=== PATIENT | female | born 1995 | race American Indian/Alaskan Native ===

== ENCOUNTER 2016-04-24 13:52 | Emergency (ER) | payer BC ==
--- NOTE | 2016-04-24 14:24 | Emergency Department Report ---
Chief Complaint: Nausea/Vomiting/Diarrhea Stated Complaint: PAIN UNDER RIB CAGE Time Seen by Provider: 04/24/16 14:19 - HPI History of Present Illness: 20-year-old -[place] female comes in for epigastric pressure and cramping since . She reports been having nausea and vomiting as well. She reported the onset was about after having hamburger and that's when she started having all the signs and symptoms. Patient reports that she last time she's had alcoholic breath which was a month ago. - Exam Vital Signs: Vital Signs 04/24/16 14:13 Temperature 98.6 F Pulse Rate 103 H Respiratory 18 Rate Blood Pressure 115/82 O2 Sat by Pulse 100 Oximetry Physical Exam: He is alert and oriented. She's patting her epigastric area. Cardiovascular tachycardic respiratory clear to auscultation abdomen soft bowel sounds present no tenderness. MSE screening note: Focused history and physical exam performed. Due to findings the following was ordered: CBC BMP lipase ordered urinalysis urine test. ED Disposition for MSE Condition: Stable
[2016-04-24 15:20] LABS: Hematocrit 41.4 % (30.3-42.9); Hemoglobin 14.2 gm/dl (10.1-14.3); Mean Corpuscular HGB Conc 34 % (30-34); Mean Corpuscular Hemoglobin 29 pg (28-32); Mean Corpuscular Volume 84 fl (79-97); Platelet Count 264 K/mm3 (140-440); Red Blood Count 4.95 M/mm3 (3.65-5.03); Red Cell Distribution Width 16.3 % (13.2-15.2); White Blood Count 8.7 K/mm3 (4.5-11.0)
[2016-04-24 15:32] LABS: Alanine Aminotransferase 10 units/L (7-56); Albumin 4.3 g/dL (3.9-5); Albumin/Globulin Ratio 1.2 %; Alkaline Phosphatase 67 units/L (35-129); Anion Gap 16 mmol/L; Bilirubin,Total 0.4 mg/dL (0.1-1.2); Blood Urea Nitrogen 14 mg/dL (7-17); Carbon Dioxide 26 mmol/L (22-30); Chloride 98.6 mmol/L (98-107); Glucose 92 mg/dL (65-100); Lipase 28 units/L (13-60); Potassium 3.4 mmol/L (3.6-5.0); Sodium 137 mmol/L (137-145); Total Protein 7.8 g/dL (6.3-8.2)
[2016-04-24] MEDS ORDERED: MORPHINE IV ONE (20:56)
[2016-04-24] MEDS ORDERED: ZOFRAN IV ONE (20:56)
[2016-04-24] MEDS ORDERED: PEPCID IV ONE (20:56)
[2016-04-24] MEDS ORDERED: K-DUR PO ONE (20:56)
[2016-04-24] MEDS ORDERED: D5NS 1,000 ML IV SCH (21:00)
[2016-04-24 21:39] LABS: Bacteria,Urine 1+ /HPF (Negative); Bilirubin,Urine NEG (Negative); Blood,Urine NEG (Negative); Ketones,Urine 80 mg/dL (Negative); Leukocyte Esterase,Urine SM (Negative); Mucus,Urine 3+ /HPF; Nitrite,Urine NEG (Negative)
--- NOTE | 2016-04-24 22:18 | Emergency Department Report ---
ED Abdominal Pain HPI - General Chief Complaint: Nausea/Vomiting/Diarrhea Stated Complaint: PAIN UNDER RIB CAGE Time Seen by Provider: 04/24/16 14:19 Source: patient Mode of arrival: Ambulatory Limitations: No Limitations - History of Present Illness Initial Comments: 20-year-old female with no significant past medical history presents hospital complaining of epigastric pain, nausea, and vomiting that started after eating a hamburger 3 days ago. Epigastric pain described as squeezing and twisting. It is constant but fluctuates in intensity. Currently rated as 7/10 in intensity. Palpation. No alleviating factors. Patient has had 3 episodes of vomiting today and about 5 episodes over night. Denies melena, hematochezia, hematemesis, fever, or dysuria. Severity scale (0 -10): 7 - Related Data Previous Rx's Medication Instructions Recorded Last Taken Type Famotidine [Pepcid] 40 mg PO QHS #20 tablet 04/24/16 Unknown Rx Ondansetron [Zofran Odt] 4 mg PO Q8HR PRN #20 tab.rapdis 04/24/16 Unknown Rx traMADol [Ultram 50 MG tab] 50 mg PO Q6HR PRN #20 tablet 04/24/16 Unknown Rx Allergies Allergy/AdvReac Type Severity Reaction Status Date / Time No Known Allergies Allergy Unverified 04/24/16 14:17 ED Review of Systems ROS: Stated complaint: PAIN UNDER RIB CAGE Other details as noted in HPI Comment: All other systems reviewed and negative Other: Constitutional: No fevers chills or weight loss Eyes: No eye pain visual changes or discharge ENT: No ear pain or throat pain Neck: Denies pain Respiratory: Denies cough wheezing shortness of breath Cardiovascular: Denies chest pain, palpitations, syncope GI: As per HPI : Denies dysuria, urinary frequency, or urgency Musculoskeletal: Denies back pain, joint swelling Skin: Denies rash, lesions, erythema Neurologic: Denies headache, numbness, weakness Psychiatric: Denies suicidal ideation, hallucinations ED Past Medical Hx - Past Medical History Previous Medical History?: No - Surgical History Past Surgical History?: No - Social History Smoking Status: Current Every Day Smoker Substance Use Type: None - Medications Home Medications: Home Medications Medication Instructions Recorded Confirmed Last Taken Type Famotidine [Pepcid] 40 mg PO QHS #20 tablet 04/24/16 Unknown Rx Ondansetron [Zofran Odt] 4 mg PO Q8HR PRN #20 tab.rapdis 04/24/16 Unknown Rx traMADol [Ultram 50 MG tab] 50 mg PO Q6HR PRN #20 tablet 04/24/16 Unknown Rx ED Physical Exam - General Limitations: No Limitations - Other Other exam information: General: No limitations, patient is alert in no acute distress Head exam: Atraumatic, normocephalic Eyes exam: Normal appearance, pupils equal reactive to light, extraocular movements intact ENT: Mucous membrane Neck exam: Normal inspection, full range of motion, no meningismus nontender Respiratory exam: Clear to auscultation bilateral, no wheezes, rales, crackles Cardiovascular: Normal rate and rhythm, normal heart sounds Abdomen: Soft, nondistended, the gastric tendon, with normal bowel sounds, no rebound, or guarding, and negative Anthony sign Extremity: Full range of motion normal inspection no deformity Back: Normal Inspection, full range of motion, no tenderness Neurologic: Alert, oriented x3, cranial nerves intact, no motor or sensory deficit Psychiatric: normal affect, normal mood Skin: Warm, dry, intact ED Course Vital Signs 04/24/16 04/24/16 04/24/16 14:13 20:17 22:00 Temperature 98.6 F Pulse Rate 103 H 91 H 90 Respiratory 18 18 18 Rate Blood Pressure 115/82 Blood Pressure 118/80 116/80 [Left] O2 Sat by Pulse 100 99 99 Oximetry 04/24/16 22:57 Temperature Pulse Rate 88 Respiratory 18 Rate Blood Pressure Blood Pressure 103/69 [Left] O2 Sat by Pulse 99 Oximetry - Reevaluation(s) Reevaluation #1: 04/24/16 22:17 Treated with D5 NS, Zofran, morphine, and Pepcid 04/24/16 22:17 ED Medical Decision Making - Lab Data Result diagrams: 04/24/16 14:33 04/24/16 14:30 Lab Results 04/24/16 04/24/16 04/24/16 Range/Units 14:30 14:33 21:15 WBC 8.7 (4.5-11.0) K/mm3 RBC 4.95 (3.65-5.03) M/mm3 Hgb 14.2 (10.1-14.3) gm/dl Hct 41.4 (30.3-42.9) % MCV 84 (79-97) fl MCH 29 (28-32) pg MCHC 34 (30-34) % RDW 16.3 H (13.2-15.2) % Plt Count 264 (140-440) K/mm3 Sodium 137 (137-145) mmol/L Potassium 3.4 L (3.6-5.0) mmol/L Chloride 98.6 (98-107) mmol/L Carbon Dioxide 26 (22-30) mmol/L Anion Gap 16 mmol/L BUN 14 (7-17) mg/dL Creatinine 0.5 L (0.7-1.2) mg/dL Estimated GFR > 60 ml/min BUN/Creatinine Ratio 28.00 % Glucose 92 (65-100) mg/dL Calcium 9.0 (8.4-10.2) mg/dL Total Bilirubin 0.4 (0.1-1.2) mg/dL AST 19 (5-40) units/L ALT 10 (7-56) units/L Alkaline Phosphatase 67 (35-129) units/L Total Protein 7.8 (6.3-8.2) g/dL Albumin 4.3 (3.9-5) g/dL Albumin/Globulin Ratio 1.2 % Lipase 28 (13-60) units/L Urine Color Yellow (Yellow) Urine Turbidity Cloudy (Clear) Urine pH 7.0 (5.0-7.0) Ur Specific [place] 1.025 (1.003-1.030) Urine Protein 30 mg/dl (Negative) mg/dL Urine Glucose (UA) Neg (Negative) mg/dL Urine Ketones 80 (Negative) mg/dL Urine Blood Neg (Negative) Urine Nitrite Neg (Negative) Urine Bilirubin Neg (Negative) Urine Urobilinogen 4.0 (<2.0) mg/dL Ur Leukocyte Esterase Sm (Negative) Urine WBC (Auto) 6.0 (0.0-6.0) /HPF Urine RBC (Auto) 7.0 (0.0-6.0) /HPF U Epithel Cells (Auto) 52.0 H (0-13.0) /HPF Urine Bacteria (Auto) 1+ (Negative) /HPF Urine Mucus 3+ /HPF Urine HCG, Qual Negative (Negative) - Medical Decision Making Patient feeling better with ED treatment and tolerating by mouth. Will be discharged home on meds for symptomatic treatment. - Differential Diagnosis food poisoning, gastritis, pancreatitis, cholecystitis, Critical Care Time: No Critical care attestation.: If time is entered above; I have spent that time in minutes in the direct care of this critically ill patient, excluding procedure time. ED Disposition Clinical Impression: Food poisoning, Epigastric pain, Nausea and vomiting Disposition: DISCHARGED TO HOME OR SELFCARE Is pt being admited?: No Does the pt Need Aspirin: No Condition: Stable Instructions: Food Poisoning (ED) Additional Instructions: Take the medication as needed for pain and nausea. Follow-up with your doctor to doctor provided. Return if symptoms worsen Prescriptions: Famotidine [Pepcid] 40 mg PO QHS #20 tablet Ondansetron [Zofran Odt] 4 mg PO Q8HR PRN #20 tab.rapdis PRN Reason: Nausea And Vomiting traMADol [Ultram 50 MG tab] 50 mg PO Q6HR PRN #20 tablet PRN Reason: Pain Referrals: PRIMARY CARE, [Primary Care Provider] - 3-5 Days CARMEN MCBRIDE MD [Staff Physician] - 3-5 Days Time of Disposition: 23:42
[2016-04-24 23:00] VITALS: BP 103/69
== END 2016-04-25 00:12 | disposition home or self-care (01) ==
LOC: ED 13:52
DX: T62.8X1A Toxic effect of other specified noxious substances eaten as food, accidental (unintentional), initial encounter (principal); R10.13 Epigastric pain; R11.2 Nausea with vomiting, unspecified; F17.200 Nicotine dependence, unspecified, uncomplicated; Y92.89 Other specified places as the place of occurrence of the external cause
CPT/HCPCS: 36415; 80053; 81001; 81025; 83690; 85027; 96361; 96374; 96375; 99283; J2270; J2405; J7042

== ENCOUNTER 2017-04-12 14:07 | Emergency (ER) | payer BC ==
[2017-04-12 14:19] VITALS: BP 126/80
--- NOTE | 2017-04-12 14:59 | Emergency Department Report ---
Blank Doc - Documentation Documentation: Patient is a 21 left neck female as having lower abdominal discomfort. Patient states his vision off and off for approximately 2-3 weeks. Patient says she has some mild urinary frequency with no dysuria. Patient denies any vaginal discharge vaginal bleeding this abnormal. Patient states she had 2 episodes of vomiting this morning.
[2017-04-12 15:55] LABS: Bilirubin,Urine NEG (Negative); Blood,Urine NEG (Negative); Color,Urine Yellow (Yellow); Mucus,Urine FEW /HPF; Protein,Urine <15 mg/dL mg/dL (Negative); Urobilinogen,Urine < 2.0 mg/dL (<2.0)
[2017-04-12 15:57] LABS: HCG Qualitative,Urine Negative (Negative)
--- NOTE | 2017-04-12 16:57 | Emergency Department Report ---
ED Abdominal Pain HPI - General Chief Complaint: Abdominal Pain Stated Complaint: ABDOMINAL PAIN/CRAMPS Time Seen by Provider: 04/12/17 14:37 Source: patient Mode of arrival: Ambulatory Limitations: No Limitations - History of Present Illness Initial Comments: Patient is a 21-year-old female who presents with upper epigastric abdominal pain for the past 2-3 weeks. Patient states she does have nausea and vomiting intermittently. Patient states the pain is worse at nighttime. Patient states she is able to eat sometimes and somewhat trace of fluids but sometimes not always. Patient states she does have a history of abnormal menstrual cycle. 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 Patient denies diarrhea, constipation, fever, chest pain - Related Data Previous Rx's Medication Instructions Recorded Last Taken Type traMADol [Ultram 50 MG tab] 50 mg PO Q6HR PRN #20 tablet 04/24/16 Unknown Rx Famotidine [Pepcid] 40 mg PO QHS #20 tablet 04/12/17 Unknown Rx Ondansetron [Zofran ODT TAB] 4 mg PO Q8HR PRN #20 tab.rapdis 04/12/17 Unknown Rx Allergies Allergy/AdvReac Type Severity Reaction Status Date / Time No Known Allergies Allergy Unverified 04/24/16 14:17 ED Review of Systems ROS: Stated complaint: ABDOMINAL PAIN/CRAMPS Other details as noted in HPI Constitutional: denies: chills, fever Eyes: denies: eye pain, eye discharge, vision change ENT: denies: ear pain, throat pain Respiratory: denies: cough, shortness of breath, wheezing Cardiovascular: denies: chest pain, palpitations Endocrine: no symptoms reported Gastrointestinal: denies: abdominal pain, nausea, diarrhea Genitourinary: denies: urgency, dysuria, discharge Musculoskeletal: denies: back pain, joint swelling, arthralgia Skin: denies: rash, lesions Neurological: denies: headache, weakness, paresthesias Psychiatric: denies: anxiety, depression Hematological/Lymphatic: denies: easy bleeding, easy bruising ED Past Medical Hx - Past Medical History Previous Medical History?: No - Social History Smoking Status: Current Every Day Smoker Substance Use Type: None - Medications Home Medications: Home Medications Medication Instructions Recorded Confirmed Last Taken Type traMADol [Ultram 50 MG tab] 50 mg PO Q6HR PRN #20 tablet 04/24/16 Unknown Rx Famotidine [Pepcid] 40 mg PO QHS #20 tablet 04/12/17 Unknown Rx Ondansetron [Zofran ODT TAB] 4 mg PO Q8HR PRN #20 tab.rapdis 04/12/17 Unknown Rx ED Physical Exam - General Limitations: No Limitations General appearance: alert, in no apparent distress - Head Head exam: Present: atraumatic, normocephalic - Eye Eye exam: Present: normal appearance - ENT ENT exam: Present: mucous membranes moist - Neck Neck exam: Present: normal inspection - Respiratory Respiratory exam: Present: normal lung sounds bilaterally. Absent: respiratory distress - Cardiovascular Cardiovascular Exam: Present: regular rate, normal rhythm. Absent: systolic murmur, diastolic murmur, rubs, gallop - GI/Abdominal GI/Abdominal exam: Present: soft, normal bowel sounds - Extremities Exam Extremities exam: Present: normal inspection - Back Exam Back exam: Present: normal inspection - Neurological Exam Neurological exam: Present: alert, oriented X3 - Psychiatric Psychiatric exam: Present: normal affect, normal mood - Skin Skin exam: Present: warm, dry, intact, normal color. Absent: rash ED Course Vital Signs 04/12/17 14:15 Temperature 98.4 F Pulse Rate 97 H Respiratory 18 Rate Blood Pressure 126/80 O2 Sat by Pulse 100 Oximetry Critical care attestation.: If time is entered above; I have spent that time in minutes in the direct care of this critically ill patient, excluding procedure time. ED Disposition Clinical Impression: Gastritis Qualifiers: Gastritis type: unspecified gastritis Chronicity: chronic Gastritis bleeding: without bleeding Qualified Code(s): K29.50 - Unspecified chronic gastritis without bleeding Food poisoning Qualifiers: Encounter type: initial encounter Injury intent: accidental or unintentional Qualified Code(s): T62.91XA - Toxic effect of unspecified noxious substance eaten as food, accidental (unintentional), initial encounter Disposition: DC-01 TO HOME OR SELFCARE Is pt being admited?: No Does the pt Need Aspirin: No Condition: Stable Instructions: Gastritis (ED), Gastroenteritis (ED), Food Poisoning (ED), Abdominal Pain (ED) Additional Instructions: Make sure to follow up with the primary care physician as discussed. Take all your medications as you've been prescribed. If you have any worsening symptoms or develop new symptoms please return to ED immediately. Prescriptions: Famotidine [Pepcid] 40 mg PO QHS #20 tablet Ondansetron [Zofran ODT TAB] 4 mg PO Q8HR PRN #20 tab.rapdis PRN Reason: Nausea And Vomiting Referrals: PRIMARY CARE,MD [Primary Care Provider] - 3-5 Days [facility] [Provider Group] - 3-5 Days Forms: Accompanied Note, Work/School Release Form(ED) Time of Disposition: 18:45
[2017-04-12] MEDS ORDERED: ZOFRAN ODT ONE (18:41)
[2017-04-12] MEDS ORDERED: ZOFRAN ODT PO ONE (18:46)
--- NOTE | 2017-04-12 19:15 | XRay Report ---
FINAL REPORT EXAM: XR ABDOMEN 1V AP HISTORY: abd pain upt ordered TECHNIQUE: Single view of the abdomen. PRIORS: None currently available. FINDINGS: Bowel gas appearance is nonspecific and non-distended. There is no pneumoperitoneum. There is no air fluid level. There is no obstructive pattern. Mild stool is present. There are no suspicious calcifications overlying the renal shadows. IMPRESSION: Nonspecific nonobstructive bowel gas pattern.
== END 2017-04-12 18:59 | disposition home or self-care (01) ==
LOC: ED 14:07
DX: K29.50 Unspecified chronic gastritis without bleeding (principal); T62.91XA Toxic effect of unspecified noxious substance eaten as food, accidental (unintentional), initial encounter; F17.200 Nicotine dependence, unspecified, uncomplicated; Y92.89 Other specified places as the place of occurrence of the external cause
CPT/HCPCS: 74018; 81001; 81025; 99283; Q0162

== ENCOUNTER 2017-08-03 11:31 | Emergency (ER) | payer BC ==
[2017-08-03 12:21] LABS: Alanine Aminotransferase 9 units/L (7-56); Albumin 4.8 g/dL (3.9-5); BUN/Creatinine Ratio 34; Blood Urea Nitrogen 17 mg/dL (7-17); Calcium 10.2 mg/dL (8.4-10.2); Hemolysis Index 2
[2017-08-03 12:37] LABS: Basophils # (Auto) 0.1 K/mm3 (0.0-0.1); Basophils % (Auto) 0.6 % (0.0-1.8); Eosinophils % (Auto) 0.1 % (0.0-4.3); Hematocrit 38.7 % (30.3-42.9); Hemoglobin 12.9 gm/dl (10.1-14.3); Lymphocytes # (Auto) 1.6 K/mm3 (1.2-5.4); Lymphocytes % (Auto) 18.1 % (13.4-35.0); Mean Corpuscular HGB Conc 33 % (30-34); Mean Corpuscular Volume 78 fl (79-97); Monocytes # (Auto) 0.3 K/mm3 (0.0-0.8); Monocytes % (Auto) 2.8 % (0.0-7.3); Platelet Count 319 K/mm3 (140-440); Red Blood Count 4.98 M/mm3 (3.65-5.03); Red Cell Distribution Width 18.4 % (13.2-15.2)
[2017-08-03 12:40] LABS: Mean Corpuscular Hemoglobin 26 pg (28-32)
[2017-08-03 12:56] VITALS: BP 118/64
[2017-08-03] MEDS ORDERED: ZOFRAN IV ONE (13:06)
[2017-08-03] MEDS ORDERED: SUBLIMAZE IV ONE (13:06)
[2017-08-03] MEDS ORDERED: NACL 0.9% 1000 ML 1,000 ML IV ONE (13:06)
[2017-08-03] MEDS ORDERED: PEPCID IV ONE (13:07)
--- NOTE | 2017-08-03 13:34 | Emergency Department Report ---
HPI - General Chief Complaint: Abdominal Pain Time Seen by Provider: 08/03/17 13:02 - HPI HPI: Brown 19 The patient is a 22-year-old female presenting with a chief complaint of follow- up pain. Patient states she has nausea and vomiting since yesterday. The patient states her symptoms began approximately 24 hours after eating curried chicken. Patient denies diarrhea or fever. The patient states this morning she developed a twisting midepigastric abdominal pain that has been intermittent. The patient gives her pain score of 8/10 Location: Gastrointestinal system Duration: [See above] Quality: Twisting Severity: 8/10 Modifying factors: [see above] Context: [see above] Mode of transportation: [not driving] ED Past Medical Hx - Past Medical History Previous Medical History?: No - Surgical History Past Surgical History?: No - Family History Family history: no significant - Social History Smoking Status: Current Every Day Smoker (approximately one pack per day) Substance Use Type: None (denies illicit drug use) - Medications Home Medications: Home Medications Medication Instructions Recorded Confirmed Last Taken Type traMADol [Ultram 50 MG tab] 50 mg PO Q6HR PRN #20 tablet 04/24/16 Unknown Rx Famotidine [Pepcid] 40 mg PO QHS #20 tablet 04/12/17 Unknown Rx Ondansetron [Zofran ODT TAB] 4 mg PO Q8HR PRN #20 tab.rapdis 04/12/17 Unknown Rx Famotidine [Pepcid] 20 mg PO BID #20 tablet 08/03/17 Unknown Rx HYDROcodone/ACETAMINOPHEN [[place] 1 - 2 each PO Q4-6H PRN #10 tablet 08/03/17 Unknown Rx 5-325 Tablet] Ondansetron [Zofran ODT TAB] 8 mg PO Q8HR #20 tab.rapdis 08/03/17 Unknown Rx ED Review of Systems ROS: Stated complaint: FOOD POISON Other details as noted in HPI Constitutional: denies: fever Eyes: denies: eye pain ENT: denies: throat pain Cardiovascular: denies: chest pain Gastrointestinal: abdominal pain, nausea, vomiting. denies: diarrhea Genitourinary: denies: dysuria Musculoskeletal: denies: back pain Neurological: denies: headache Physical Exam - Physical Exam Vital Signs: Vital Signs 08/03/17 08/03/17 11:50 12:55 Temperature 98.3 F 98.3 F Pulse Rate 83 56 L Respiratory 16 18 Rate Blood Pressure 110/64 Blood Pressure 118/64 [Right] O2 Sat by Pulse 100 98 Oximetry Physical Exam: GENERAL: The patient is well-developed well-nourished female lying on stretcher sitting on her knees appear to be in moderate discomfort. [] HEENT: Normocephalic. Atraumatic. Extraocular motions are intact. Patient has moist mucous membranes. NECK: Supple. Trachea midline CHEST/LUNGS: Clear to auscultation. There is no respiratory distress noted. HEART/CARDIOVASCULAR: Regular. There is no tachycardia. There is no gallop rub or murmur. ABDOMEN: Abdomen is soft, with tenderness to palpation in the midepigastric region. There is no tenderness elsewhere in the abdomen. Patient has normal bowel sounds. There is no abdominal distention. SKIN: There is no rash. There is no edema. There is no diaphoresis. NEURO: The patient is awake, alert, and oriented. The patient is cooperative. The patient has normal speech MUSCULOSKELETAL: There is no evidence of acute injury. ED Course Vital Signs 08/03/17 08/03/17 11:50 12:55 Temperature 98.3 F 98.3 F Pulse Rate 83 56 L Respiratory 16 18 Rate Blood Pressure 110/64 Blood Pressure 118/64 [Right] O2 Sat by Pulse 100 98 Oximetry ED Medical Decision Making - Lab Data Result diagrams: 08/03/17 11:55 08/03/17 11:55 Laboratory Tests 08/03/17 08/03/17 08/03/17 11:55 11:55 11:55 WBC 9.0 RBC 4.98 Hgb 12.9 Hct 38.7 MCV 78 L MCH 26 L MCHC 33 RDW 18.4 H Plt Count 319 Lymph % (Auto) 18.1 [place] % (Auto) 2.8 Eos % (Auto) 0.1 Baso % (Auto) 0.6 Lymph # 1.6 [place] # 0.3 Eos # 0.0 Baso # 0.1 Seg Neutrophils % 78.4 H Seg Neutrophils # 7.1 Sodium 139 Potassium 4.1 Chloride 105.6 Carbon Dioxide 23 Anion Gap 15 BUN 17 Creatinine 0.5 L Estimated GFR > 60 BUN/Creatinine Ratio 34 Glucose 118 H Calcium 10.2 Total Bilirubin 0.80 AST 20 ALT 9 Alkaline Phosphatase 69 Total Protein 8.5 H Albumin 4.8 Albumin/Globulin Ratio 1.3 Lipase HCG, Qual Negative Urine Color Urine Turbidity Urine pH Ur Specific [place] Urine Protein Urine Glucose (UA) Urine Ketones Urine Blood Urine Nitrite Urine Bilirubin Urine Urobilinogen Ur Leukocyte Esterase Urine WBC (Auto) Urine RBC (Auto) U Epithel Cells (Auto) Urine Mucus 08/03/17 08/03/17 11:55 13:02 WBC RBC Hgb Hct MCV MCH MCHC RDW Plt Count Lymph % (Auto) [place] % (Auto) Eos % (Auto) Baso % (Auto) Lymph # [place] # Eos # Baso # Seg Neutrophils % Seg Neutrophils # Sodium Potassium Chloride Carbon Dioxide Anion Gap BUN Creatinine Estimated GFR BUN/Creatinine Ratio Glucose Calcium Total Bilirubin AST ALT Alkaline Phosphatase Total Protein Albumin Albumin/Globulin Ratio Lipase 29 HCG, Qual Urine Color Yellow Urine Turbidity Clear Urine pH 8.0 H Ur Specific [place] 1.025 Urine Protein 30 mg/dl Urine Glucose (UA) Neg Urine Ketones 20 Urine Blood Neg Urine Nitrite Neg Urine Bilirubin Neg Urine Urobilinogen < 2.0 Ur Leukocyte Esterase Tr Urine WBC (Auto) 2.0 Urine RBC (Auto) 1.0 U Epithel Cells (Auto) 1.0 Urine Mucus 2+ - Radiology Data Radiology results: report reviewed (CT abdomen and pelvis), image reviewed (CT abdomen and pelvis) [place] [address] Cat Scan Report Signed Patient: GELY MAYNARD MR#: [id number] : 1995 Acct:[id number] Age/Sex: 22 / F ADM Date: 08/03/17 Loc: ED Attending Dr: Ordering Physician: CORNELIA GROVES MD Date of Service: 08/03/17 Procedure(s): CT abdomen pelvis w con Accession Number(s): [id number] cc: CORNELIA GROVES MD CT ABDOMEN PELVIS WITH CONTRAST: HISTORY: Epigastric abdominal pain, nausea and vomiting. COMPARISON: none. TECHNIQUE: Helical CT in 1.25mm intervals following IV contrast. Sagittal and coronal reconstructions. FINDINGS: Lung bases: Normal. Liver: Normal. Biliary system: Normal. Pancreas: Normal. Spleen: Normal. Kidneys/ureters/bladder: Normal. Adrenal glands: Normal. Aorta: Normal. Intestines: Normal. Appendix: Normal. Pelvic viscera: Normal. Ascites: None. Adenopathy: None. Musculoskeletal: Normal. IMPRESSION: Unremarkable CT scan of the abdomen and pelvis with contrast. Transcribed By: TTR Dictated By: ISAURO NATARAJAN JR, MD Electronically Authenticated By: ISAURO NATARAJAN JR, MD Signed Date/Time: 08/03/171446 DD/ 46 TD/TT: 08/03/171446 Critical care attestation.: If time is entered above; I have spent that time in minutes in the direct care of this critically ill patient, excluding procedure time. ED Disposition Clinical Impression: Acute abdominal pain, Gastritis Disposition: TO HOME OR SELFCARE Is pt being admited?: No Does the pt Need Aspirin: No Condition: Stable Instructions: Abdominal Pain (ED) Additional Instructions: Return to the emergency department immediately should you develop worsening symptoms, fever, inability to tolerate food or liquid or any other concerns. Prescriptions: Famotidine [Pepcid] 20 mg PO BID #20 tablet HYDROcodone/ACETAMINOPHEN [[place] 5-325 Tablet] 1 - 2 each PO Q4-6H PRN #10 tablet PRN Reason: Pain , Severe (7-10) Ondansetron [Zofran ODT TAB] 8 mg PO Q8HR #20 tab.rapdis Referrals: PRIMARY CARE, [Primary Care Provider] - 3-5 Days MELECIO JENNINGS MD [Staff Physician] - 3-5 Days (Dr. Jennings is a [employer] certified internetwork expert. Please follow up with him for further evaluation) Time of Disposition: 15:08
[2017-08-03 13:44] LABS: Bilirubin,Urine NEG (Negative); Blood,Urine NEG (Negative); Color,Urine Yellow (Yellow); Mucus,Urine 2+ /HPF; Urobilinogen,Urine < 2.0 mg/dL (<2.0)
--- NOTE | 2017-08-03 15:01 | Cat Scan Report ---
CT ABDOMEN PELVIS WITH CONTRAST: HISTORY: Epigastric abdominal pain, nausea and vomiting. COMPARISON: none. TECHNIQUE: Helical CT in 1.25mm intervals following IV contrast. Sagittal and coronal reconstructions. FINDINGS: Lung bases: Normal. Liver: Normal. Biliary system: Normal. Pancreas: Normal. Spleen: Normal. Kidneys/ureters/bladder: Normal. Adrenal glands: Normal. Aorta: Normal. Intestines: Normal. Appendix: Normal. Pelvic viscera: Normal. Ascites: None. Adenopathy: None. Musculoskeletal: Normal. IMPRESSION: Unremarkable CT scan of the abdomen and pelvis with contrast.
--- NOTE | 2017-08-03 15:12 | History and Physical Report ---
Medications and Allergies Allergies Allergy/AdvReac Type Severity Reaction Status Date / Time No Known Allergies Allergy Unverified 04/24/16 14:17 Home Medications Medication Instructions Recorded Confirmed Last Taken Type traMADol [Ultram 50 MG tab] 50 mg PO Q6HR PRN #20 tablet 04/24/16 Unknown Rx Famotidine [Pepcid] 40 mg PO QHS #20 tablet 04/12/17 Unknown Rx Ondansetron [Zofran ODT TAB] 4 mg PO Q8HR PRN #20 tab.rapdis 04/12/17 Unknown Rx Famotidine [Pepcid] 20 mg PO BID #20 tablet 08/03/17 Unknown Rx HYDROcodone/ACETAMINOPHEN [[place] 1 - 2 each PO Q4-6H PRN #10 tablet 08/03/17 Unknown Rx 5-325 Tablet] Ondansetron [Zofran ODT TAB] 8 mg PO Q8HR #20 tab.rapdis 08/03/17 Unknown Rx Exam - Constitutional Vitals: Temp Pulse Resp BP Pulse Ox 98.3 F 56 L 18 118/64 98 08/03/17 12:55 08/03/17 12:55 08/03/17 12:55 08/03/17 12:55 08/03/17 12:55 Results - Labs CBC & Chem 7: 08/03/17 11:55 08/03/17 11:55 Labs: Abnormal lab results 08/03/17 08/03/17 08/03/17 Range/Units 11:55 11:55 13:02 MCV 78 L (79-97) fl MCH 26 L (28-32) pg RDW 18.4 H (13.2-15.2) % Seg Neutrophils % 78.4 H (40.0-70.0) % Creatinine 0.5 L (0.7-1.2) mg/dL Glucose 118 H (65-100) mg/dL Total Protein 8.5 H (6.3-8.2) g/dL Urine pH 8.0 H (5.0-7.0)
[2017-08-03] MEDS ORDERED: PROVENTIL IH PRN (15:13)
[2017-08-03] MEDS ORDERED: ZOFRAN IV PRN (15:13)
[2017-08-03] MEDS ORDERED: TYLENOL PO PRN (15:13)
[2017-08-03] MEDS ORDERED: SODIUM CHLORIDE FLUSH SYRINGE 10 ML IV PRN (15:13)
[2017-08-03] MEDS ORDERED: NACL 0.45% 1000 ML 1,000 ML IV SCH (16:00)
[2017-08-03] MEDS ORDERED: SODIUM CHLORIDE FLUSH SYRINGE 10 ML IV SCH (22:00)
== END 2017-08-03 17:34 | disposition home or self-care (01) ==
LOC: ED 11:31
DX: K29.70 Gastritis, unspecified, without bleeding (principal); F17.200 Nicotine dependence, unspecified, uncomplicated
CPT/HCPCS: 36415; 74177; 80053; 81001; 83690; 84703; 85025; 96361; 96374; 96375; 99284; J2405; J3010; J7030; Q9967

== ENCOUNTER 2017-08-03 19:59 | Emergency (ER) | payer BC ==
[2017-08-03] MEDS ORDERED: NACL 0.9% 1000 ML 1,000 ML IV ONE ×2 (20:54→21:46)
[2017-08-03 21:30] LABS: Basophils % (Auto) 0.2 % (0.0-1.8); Hematocrit 36.6 % (30.3-42.9); Hemoglobin 12.4 gm/dl (10.1-14.3); Lymphocytes # (Auto) 1.8 K/mm3 (1.2-5.4); Mean Corpuscular HGB Conc 34 % (30-34); Mean Corpuscular Hemoglobin 26 pg (28-32); Mean Corpuscular Volume 77 fl (79-97); Monocytes # (Auto) 0.6 K/mm3 (0.0-0.8); Monocytes % (Auto) 4.1 % (0.0-7.3); Platelet Count 314 K/mm3 (140-440); Red Blood Count 4.73 M/mm3 (3.65-5.03); Red Cell Distribution Width 18.1 % (13.2-15.2)
[2017-08-03 21:45] LABS: Blood Urea Nitrogen 12 mg/dL (7-17)
[2017-08-03] MEDS ORDERED: ZOFRAN IV ONE (21:46)
[2017-08-03] MEDS ORDERED: DILAUDID IV ONE (21:46)
[2017-08-03 21:52] LABS: Alanine Aminotransferase 9 units/L (7-56); Albumin 4.7 g/dL (3.9-5); BUN/Creatinine Ratio 24; Calcium 9.4 mg/dL (8.4-10.2)
[2017-08-03] MEDS ORDERED: PEPCID IV ONE (23:00)
--- NOTE | 2017-08-03 23:02 | Emergency Department Report ---
ED Abdominal Pain HPI - General Chief Complaint: Abdominal Pain Stated Complaint: ABD PAIN Time Seen by Provider: 08/03/17 21:45 Source: patient, old records reviewed Mode of arrival: Ambulatory Limitations: No Limitations - History of Present Illness Initial Comments: 22-year-old -[place] female was seen here earlier and diagnosed with gastritis comes back for nausea vomiting and epigastric pain that she's been dealing with for the last 2 days. Patient reports that when she does not eat it makes the pain worse but she's had a decreased appetite. What makes it better has been the Zofran and the fluids so we have given here in fast track. Patient denies any dysuria no foreign vaginal discharge she reports that she's had similar episodes in the past for the same issue. Patient reports has a history of GERD but currently is not taking anything for it. MD Complaint: abdominal pain -: days(s) (2) - Related Data Previous Rx's Medication Instructions Recorded Last Taken Type traMADol [Ultram 50 MG tab] 50 mg PO Q6HR PRN #20 tablet 04/24/16 Unknown Rx Famotidine [Pepcid] 40 mg PO QHS #20 tablet 04/12/17 Unknown Rx Ondansetron [Zofran ODT TAB] 4 mg PO Q8HR PRN #20 tab.rapdis 04/12/17 Unknown Rx Famotidine [Pepcid] 20 mg PO BID #20 tablet 08/03/17 Unknown Rx HYDROcodone/ACETAMINOPHEN [[place] 1 - 2 each PO Q4-6H PRN #10 tablet 08/03/17 Unknown Rx 5-325 Tablet] Ondansetron [Zofran ODT TAB] 8 mg PO Q8HR #20 tab.rapdis 08/03/17 Unknown Rx Allergies Allergy/AdvReac Type Severity Reaction Status Date / Time No Known Allergies Allergy Unverified 04/24/16 14:17 ED Review of Systems ROS: Stated complaint: ABD PAIN Other details as noted in HPI ED Past Medical Hx - Past Medical History Previous Medical History?: No - Surgical History Past Surgical History?: No - Social History Smoking Status: Never Smoker Substance Use Type: None - Medications Home Medications: Home Medications Medication Instructions Recorded Confirmed Last Taken Type traMADol [Ultram 50 MG tab] 50 mg PO Q6HR PRN #20 tablet 04/24/16 Unknown Rx Famotidine [Pepcid] 40 mg PO QHS #20 tablet 04/12/17 Unknown Rx Ondansetron [Zofran ODT TAB] 4 mg PO Q8HR PRN #20 tab.rapdis 04/12/17 Unknown Rx Famotidine [Pepcid] 20 mg PO BID #20 tablet 08/03/17 Unknown Rx HYDROcodone/ACETAMINOPHEN [[place] 1 - 2 each PO Q4-6H PRN #10 tablet 08/03/17 Unknown Rx 5-325 Tablet] Ondansetron [Zofran ODT TAB] 8 mg PO Q8HR #20 tab.rapdis 08/03/17 Unknown Rx ED Physical Exam - General Limitations: No Limitations General appearance: alert, in no apparent distress - Head Head exam: Present: atraumatic, normocephalic - ENT ENT exam: Present: mucous membranes moist - Respiratory Respiratory exam: Present: normal lung sounds bilaterally. Absent: respiratory distress - Cardiovascular Cardiovascular Exam: Present: regular rate, normal rhythm. Absent: systolic murmur, diastolic murmur, rubs, gallop - GI/Abdominal GI/Abdominal exam: Present: soft, tenderness (mid epigastric) - Extremities Exam Extremities exam: Present: normal inspection - Neurological Exam Neurological exam: Present: alert, oriented X3, normal gait - Psychiatric Psychiatric exam: Present: normal affect, normal mood - Skin Skin exam: Present: warm, dry, intact, normal color. Absent: rash ED Course Vital Signs 08/03/17 08/03/17 08/04/17 20:34 20:50 00:59 Temperature 99.2 F 99.2 F 99.0 F Pulse Rate 92 H 100 H 88 Respiratory 16 16 Rate Blood Pressure 121/80 121/80 Blood Pressure 105/68 [Right] O2 Sat by Pulse 100 100 Oximetry - Reevaluation(s) Reevaluation #1: 08/04/17 01:25 Patient reports that she feels better after having a second dose of Dilaudid and Zofran. ED Medical Decision Making - Lab Data Result diagrams: 08/03/17 21:18 08/03/17 21:18 - Radiology Data Radiology results: report reviewed Ordering Physician: CORNELIA GROVES MD Date of Service: 08/03/17 Procedure(s): CT abdomen pelvis w con Accession Number(s): [id number] cc: CORNELIA GROVES MD CT ABDOMEN PELVIS WITH CONTRAST: HISTORY: Epigastric abdominal pain, nausea and vomiting. COMPARISON: none. TECHNIQUE: Helical CT in 1.25mm intervals following IV contrast. Sagittal and coronal reconstructions. FINDINGS: Lung bases: Normal. Liver: Normal. Biliary system: Normal. Pancreas: Normal. Spleen: Normal. Kidneys/ureters/bladder: Normal. Adrenal glands: Normal. Aorta: Normal. Intestines: Normal. Appendix: Normal. Pelvic viscera: Normal. Ascites: None. Adenopathy: None. Musculoskeletal: Normal. IMPRESSION: Unremarkable CT scan of the abdomen and pelvis with contrast. Transcribed By: TTR Dictated By: ISAURO NATARAJAN JR, MD Electronically Authenticated By: ISAURO NATARAJAN JR, MD Signed Date/Time: 08/03/171446 DD/ 46 TD/TT: 08/03/171446 - Medical Decision Making Patient has been evaluated with his provider fast track. IV fluids and morphine given to patient for pain management. Pepcid 20 mg IV is given to patient We'll discharge patient with her to continue the medication that she was given 2 when she was discharged earlier. Critical care attestation.: If time is entered above; I have spent that time in minutes in the direct care of this critically ill patient, excluding procedure time. ED Disposition Clinical Impression: Acute abdominal pain Gastritis Qualifiers: Gastritis type: unspecified gastritis Chronicity: acute Gastritis bleeding: without bleeding Qualified Code(s): K29.00 - Acute gastritis without bleeding Disposition: - TO HOME OR SELFCARE Is pt being admited?: No Does the pt Need Aspirin: No Condition: Stable Instructions: Gastritis (ED), Abdominal Pain (ED) Additional Instructions: Continue with medication that you were discharged earlier today. Follow-up with Dr. Jennings he is a accident examiner. As well as follow-up with [facility]. Referrals: GAURAV JUAREZ MD [Primary Care Provider] - 3-5 Days MELECIO JENNINGS MD [Staff Physician] - 3-5 Days [facility] [Provider Group] - 3-5 Days Forms: Work/School Release Form(ED)
[2017-08-04] MEDS ORDERED: DILAUDID IV ONE (00:25)
[2017-08-04 01:20] VITALS: BP 105/68
[2017-08-04 07:03] LABS: Bilirubin,Urine NEG (Negative); Blood,Urine NEG (Negative); Color,Urine Yellow (Yellow); Hyaline Casts,Urine 1 /LPF; Mucus,Urine 2+ /HPF; Urobilinogen,Urine < 2.0 mg/dL (<2.0)
== END 2017-08-04 01:41 | disposition home or self-care (01) ==
LOC: ED 19:59
DX: K29.00 Acute gastritis without bleeding (principal); Z79.899 Other long term (current) drug therapy
CPT/HCPCS: 36415; 80053; 81001; 84703; 85025; 96361; 96374; 96375; 96376; 99283; J1170; J2405; J7030

== ENCOUNTER 2021-07-08 10:11 | Emergency (ER) | payer SELFPAY ==
[2021-07-08 11:19] LABS: Blood Urea Nitrogen 16 mg/dL (7-17); Calcium 9.3 mg/dL (8.4-10.2); Hemolysis Index 2
[2021-07-08 11:21] LABS: BUN/Creatinine Ratio 27
[2021-07-08] MEDS ORDERED: KETOROLAC 10 MG TAB PO ONE (11:34)
[2021-07-08] MEDS ORDERED: ONDANSETRON 4 MG ODT TAB PO ONE (11:34)
[2021-07-08 11:45] LABS: Basophils # (Auto) 0.1 K/mm3 (0.0-0.1); Eosinophils % (Auto) 0.5 % (0.0-4.3); Hematocrit 41.7 % (30.3-42.9); Hemoglobin 14.6 gm/dl (10.1-14.3); Lymphocytes # (Auto) 2.8 K/mm3 (1.2-5.4); Lymphocytes % (Auto) 31.7 % (13.4-35.0); Mean Corpuscular HGB Conc 35 % (30-34); Mean Corpuscular Volume 89 fl (79-97); Monocytes # (Auto) 0.5 K/mm3 (0.0-0.8); Monocytes % (Auto) 5.5 % (0.0-7.3); Platelet Count 301 K/mm3 (140-440); Red Blood Count 4.69 M/mm3 (3.65-5.03); Red Cell Distribution Width 13.9 % (13.2-15.2)
[2021-07-08 12:49] LABS: Bacteria,Urine 1+ /HPF (Negative); Bilirubin,Urine NEG (Negative); Blood,Urine NEG (Negative); Color,Urine Yellow (Yellow); Mucus,Urine 3+ /HPF; Protein,Urine <15 mg/dL mg/dL (Negative); Urobilinogen,Urine < 2.0 mg/dL (<2.0)
--- NOTE | 2021-07-08 13:51 | Cat Scan Report ---
CT ABDOMEN AND PELVIS WITHOUT CONTRAST INDICATION / CLINICAL INFORMATION: abd pain. TECHNIQUE: Axial CT images were obtained through the abdomen and pelvis without IV contrast. All CT scans at this location are performed using CT dose reduction for ALARA by means of automated exposure control. COMPARISON: 08/03/2017 FINDINGS: LOWER CHEST: No significant abnormality. AORTA / ARTERIES: No significant abnormality. IVC / VEINS: No significant abnormality. LYMPH NODES: Lack of intraperitoneal fat limits evaluation for adenopathy. COLON: No significant abnormality. APPENDIX: No significant abnormality. STOMACH / SMALL BOWEL: No significant abnormality. PERITONEUM: No free fluid. No free air. No fluid collection. LIVER: No significant abnormality. GALLBLADDER: No significant abnormality. BILE DUCTS: No significant abnormality. PANCREAS: No significant abnormality. SPLEEN: No significant abnormality. ADRENALS: No significant abnormality. RIGHT KIDNEY / URETER: Increased density of the renal pyramids. No hydronephrosis or nephrolithiasis. LEFT KIDNEY / URETER: Increased density of the renal pyramids. No hydronephrosis or nephrolithiasis. URINARY BLADDER: No significant abnormality. REPRODUCTIVE ORGANS: No significant abnormality. SKELETAL SYSTEM: No significant abnormality. ADDITIONAL FINDINGS: None. IMPRESSION: 1. There is increased density within the bilateral renal pyramids suggesting renal medullary nephroca lcinosis, otherwise no CT findings to explain symptomatology. No hydronephrosis or nephrolithiasis. Signer Name: José Manuel Hinkle DO Signed: 07/08/2021 1:47 PM Workstation Name: [id number]
--- NOTE | 2021-07-08 14:01 | Emergency Department Report ---
ED Abdominal Pain HPI - General Chief Complaint: Abdominal Pain Stated Complaint: APPENDIX PAIN/ALCOHOL POISON Time Seen by Provider: 07/08/21 10:58 Source: patient Mode of arrival: Ambulatory Limitations: No Limitations - History of Present Illness Initial Comments: 26-year-old black female with no past medical history presents to the emergency department for evaluation of 4 to 5-day history of worsening left upper quadrant pain. She states that for the last few weeks she has been drinking excessively because she is celebrating her birthday. She states that she is drinking daily, and yesterday she had persistent nausea vomiting. She denies diarrhea, fever, dysuria, and vaginal discharge. She states her last menstrual period was on June 26. She states that she has not taken any medication for symptoms. MD Complaint: abdominal pain -: Gradual, days(s) (4-5) Location: LUQ Radiation: none Migration to: no migration Severity: severe Severity scale (0 -10): 10 Quality: aching Associated Symptoms: nausea, vomiting. denies: diarrhea, fever, chills, dysuria, hematemesis, hematochezia, melena, hematuria, anorexia, syncope - Related Data LMP (females 10-50): last week Previous Rx's Medication Instructions Recorded Last Taken Type traMADoL [Ultram 50 MG tab] 50 mg PO Q6HR PRN #20 tablet 04/24/16 Unknown Rx Famotidine [Pepcid] 40 mg PO QHS #20 tablet 04/12/17 Unknown Rx Ondansetron [Zofran ODT TAB] 4 mg PO Q8HR PRN #20 tab.rapdis 04/12/17 Unknown Rx Famotidine [Pepcid] 20 mg PO BID #20 tablet 08/03/17 Unknown Rx HYDROcodone/ACETAMINOPHEN [[place] 1 - 2 each PO Q4-6H PRN #10 tablet 08/03/17 Unknown Rx 5-325 Tablet] Ondansetron [Zofran ODT TAB] 8 mg PO Q8HR #20 tab.rapdis 08/03/17 Unknown Rx Famotidine [Pepcid] 40 mg PO QHS #15 tab 07/08/21 Unknown Rx Ondansetron [Zofran Odt] 4 mg PO Q8HR PRN #12 tab.rapdis 07/08/21 Unknown Rx cephALEXin [Keflex] 500 mg PO BID #14 cap 07/08/21 Unknown Rx Allergies Allergy/AdvReac Type Severity Reaction Status Date / Time No Known Allergies Allergy Verified 07/08/21 10:36 ED Review of Systems ROS: Stated complaint: APPENDIX PAIN/ALCOHOL POISON Other details as noted in HPI Comment: All other systems reviewed and negative Constitutional: denies: chills, fever, malaise, weakness ENT: denies: ear pain, congestion Respiratory: denies: cough, shortness of breath, SOB with exertion, SOB at rest, wheezing Cardiovascular: denies: chest pain, palpitations, dyspnea on exertion, orthopnea, edema, syncope, paroxysmal nocturnal dyspnea Gastrointestinal: abdominal pain, nausea, vomiting. denies: diarrhea, hematemesis, melena, hematochezia Genitourinary: denies: urgency, dysuria, frequency, hematuria, discharge Musculoskeletal: denies: back pain Skin: denies: rash, lesions Neurological: denies: headache, weakness Psychiatric: denies: anxiety, depression ED Past Medical Hx - Social History Smoking Status: Never Smoker Substance Use Type: None - Medications Home Medications: Home Medications Medication Instructions Recorded Confirmed Last Taken Type traMADoL [Ultram 50 MG tab] 50 mg PO Q6HR PRN #20 tablet 04/24/16 Unknown Rx Famotidine [Pepcid] 40 mg PO QHS #20 tablet 04/12/17 Unknown Rx Ondansetron [Zofran ODT TAB] 4 mg PO Q8HR PRN #20 tab.rapdis 04/12/17 Unknown R x Famotidine [Pepcid] 20 mg PO BID #20 tablet 08/03/17 Unknown Rx HYDROcodone/ACETAMINOPHEN [[place] 1 - 2 each PO Q4-6H PRN #10 tablet 08/03/17 Unknown Rx 5-325 Tablet] Ondansetron [Zofran ODT TAB] 8 mg PO Q8HR #20 tab.rapdis 08/03/17 Unknown Rx Famotidine [Pepcid] 40 mg PO QHS #15 tab 07/08/21 Unknown Rx Ondansetron [Zofran Odt] 4 mg PO Q8HR PRN #12 tab.rapdis 07/08/21 Unknown Rx cephALEXin [Keflex] 500 mg PO BID #14 cap 07/08/21 Unknown Rx ED Physical Exam - General Limitations: No Limitations General appearance: alert, in no apparent distress - Head Head exam: Present: atraumatic, normocephalic - Eye Eye exam: Present: normal appearance. Absent: conjunctival injection - Neck Neck exam: Present: normal inspection, full ROM. Absent: tenderness, lymphade nopathy - Respiratory Respiratory exam: Present: normal lung sounds bilaterally. Absent: respiratory distress, wheezes, rales, rhonchi, stridor, chest wall tenderness - Cardiovascular Cardiovascular Exam: Present: regular rate, normal heart sounds - GI/Abdominal GI/Abdominal exam: Present: soft, tenderness (Left upper quadrant), normal bowel sounds. Absent: distended, guarding, rebound, rigid - Extremities Exam Extremities exam: Present: normal inspection, normal capillary refill. Absent: tenderness, pedal edema, joint swelling, calf tenderness - Back Exam Back exam: Present: normal inspection. Absent: tenderness, CVA tenderness (R), CVA tenderness (L) - Neurological Exam Neurological exam: Present: alert, oriented X3, normal gait - Psychiatric Psychiatric exam: Present: normal affect, normal mood - Skin Skin exam: Present: warm, dry, intact, normal color ED Course Vital Signs 07/08/21 10:33 Temperature 98 F Pulse Rate 96 H Respiratory 18 Rate Blood Pressure 111/63 [Right] O2 Sat by Pulse 99 Oximetry ED Medical Decision Making - Lab Data Result diagrams: 07/08/21 10:43 07/08/21 10:43 - Radiology Data Radiology results: report reviewed CT abdomen and pelvis without contrast: FINDINGS: LOWER CHEST: No significant abnormality. AORTA / ARTERIES: No significant abnormality. IVC / VEINS: No significant abnormality. LYMPH NODES: Lack of intraperitoneal fat limits evaluation for adenopathy. COLON: No significant abnormality. APPENDIX: No significant abnormality. STOMACH / SMALL BOWEL: No significant abnormality. PERITONEUM: No free fluid. No free air. No fluid collection. LIVER: No significant abnormality. GALLBLADDER: No significant abnormality. BILE DUCTS: No significant abnormality. PANCREAS: No significant abnormality. SPLEEN: No significant abnormality. ADRENALS: No significant abnormality. RIGHT KIDNEY / URETER: Increased density of the renal pyramids. No hydronephrosis or nephrolithiasis. LEFT KIDNEY / URETER: Increased density of the renal pyramids. No hydronephrosis or nephrolithiasis. URINARY BLADDER: No significant abnormality. REPRODUCTIVE ORGANS: No significant abnormality. SKELETAL SYSTEM: No significant abnormality. ADDITIONAL FINDINGS: None. IMPRESSION: 1. There is increased density within the bilateral renal pyramids suggesting renal medullary nephrocalcinosis, otherwise no CT findings to explain symptomatology. No hydron ephrosis or n ephrolithiasis. - Medical Decision Making 26-year-old black female with no past medical history presents to the emergency department for evaluation of 4 to 5-day history of worsening left upper quadrant pain. She states that for the last few weeks she has been drinking excessively because she is celebrating her birthday. She states that she is drinking daily, and yesterday she had persistent nausea vomiting. She denies diarrhea, fever, dysuria, and vaginal discharge. She states her last menstrual period was on June 26. She states that she has not taken any medication for symptoms. No gross abnormalities noted on exam, labs, and CT scan. UA positive for urinary tract infection. Symptoms resolved after medication. Patient be discharged home with Keflex, Pepcid, and Zofran. She is advised to take medications as prescribed and follow-up with primary care provider if no improvement or worsening symptoms. She verbalizes understanding of and agreement with plan of care. Critical care attestation.: If time is entered above; I have spent that time in minutes in the direct care of this critically ill patient, excluding procedure time. ED Disposition Clinical Impression: LUQ abdominal pain UTI (urinary tract infection) Qualifiers: Urinary tract infection type: acute cystitis Hematuria presence: without hematuria Qualified Code(s): N30.00 - Acute cystitis without hematuria Nausea and vomiting Qualifiers: Vomiting type: unspecified Qualified Code(s): R11.2 - Nausea with vomiting, unspecified Disposition: 01 HOME / SELF CARE / HOMELESS Is pt being admited?: No Does the pt Need Aspirin: No Condition: Stable Instructions: Antibiotic Medicine, Adult, [id number], Nausea and Vomiting, Adult, [id number], Urinary Tract Infection, Adult, [id number], Abdominal Pain, Adult, [id number], Abdominal Pain (ED) Additional Instructions: Take medications as prescribed. Follow-up with primary care provider if no improvement or worsening symptoms. Return to the emergency department as needed. Prescriptions: Famotidine [Pepcid] 40 mg PO QHS #15 tab cephALEXin [Keflex] 500 mg PO BID #14 cap Ondansetron [Zofran Odt] 4 mg PO Q8HR PRN #12 tab.rapdis PRN Reason: Nausea And Vomiting Referrals: LIV TREVINO MD [Primary Care Provider] - 3-5 Days Forms: Work/School Release Form(ED) Time of Disposition: 14:01
[2021-07-08 14:36] VITALS: BP 128/74
== END 2021-07-08 14:35 | disposition home or self-care (01) ==
LOC: ED 10:11
DX: N39.0 Urinary tract infection, site not specified (principal); R10.12 Left upper quadrant pain; R11.2 Nausea with vomiting, unspecified; Z79.899 Other long term (current) drug therapy
CPT/HCPCS: 36415; 74176; 80048; 81001; 83690; 84703; 85025; 87086; 99284; J3490; Q0162